=== PATIENT | female | born 1965 | race Caucasian/White ===

== ENCOUNTER 2019-11-26 08:24 | Day surgery (SDC) | payer OTHER, MEDICARE ==
[~2019-11-26] VITALS: Ht 172.7 cm; Wt 149.7 kg
[~2019-11-26 08:24] MED LIST: ALBU8.5H8 IH; CHOL500062 PO; ESCI10TA54 PO; ESTR0.5T PO; FLUT1DIS3 IH; LEVO5TAB13 PO; PANT40TA25 PO; SODIUM CHLORIDE 0.9% 1000ML 1,000 ML IV ONE
[2019-11-26 09:26] VITALS: BP 136/79
[2019-11-26] MEDS ORDERED: GUAI-1211 PO (09:56)
[2019-11-26] MEDS ORDERED: [UNRECOGNIZED DRUG - OTHER] PO (09:56)
[2019-11-26] MEDS ORDERED: MIDAZOLAM HCL 1 MG/ML 2ML VIAL ONE (10:21)
[2019-11-26] MEDS ORDERED: PROPOFOL 10 MG/ML 20ML VIAL IV ONE (10:21)
[2019-11-26] MEDS ORDERED: LIDOCAINE HCL 1% 20 ML VIAL ONE (10:21)
[2019-11-26 10:38] VITALS: BP 124/64
[2019-11-26 10:43] VITALS: BP 123/53
[2019-11-26 10:48] VITALS: BP 134/84
--- NOTE | 2019-11-26 11:10 | NUR ---
PT LEFT VIA WHEELCHAIR IN PVT CAR. D/C INSTRUCTIONS GIVEN TO FAMILY FRIEND WITH FU APPT. V/S STABLE N-O COMPLICATIONS UPON D.C
== END 2019-11-26 11:10 | disposition home or self-care (01) ==
LOC: DAH 08:24 → ENDO 08:24
PROVIDERS: ATTEND Internal Medicine
DX: Z12.11 Encounter for screening for malignant neoplasm of colon (principal); K63.5 Polyp of colon; J45.31 Mild persistent asthma with (acute) exacerbation; F41.9 Anxiety disorder, unspecified; K21.9 Gastro-esophageal reflux disease without esophagitis; F32.9 Major depressive disorder, single episode, unspecified; F17.210 Nicotine dependence, cigarettes, uncomplicated; E66.01 Morbid (severe) obesity due to excess calories; Z68.42 Body mass index [BMI] 45.0-49.9, adult; Z79.899 Other long term (current) drug therapy; Z79.2 Long term (current) use of antibiotics; Z90.710 Acquired absence of both cervix and uterus; Z90.49 Acquired absence of other specified parts of digestive tract; Z72.89 Other problems related to lifestyle; Z80.0 Family history of malignant neoplasm of digestive organs; Z82.49 Family history of ischemic heart disease and other diseases of the circulatory system; Z82.5 Family history of asthma and other chronic lower respiratory diseases
CPT/HCPCS: 45378; A4215; A4221; A4222; A4223; A4606; A4620; A4663; J2250; J2704; J7030

== ENCOUNTER 2019-11-27 05:41 | Day surgery (SDC) | payer OTHER, MEDICARE ==
[2019-11-27] VITALS (8 sets, daily range): BP systolic 107–142; BP diastolic 66–83
[~2019-11-27] VITALS: Ht 172.7 cm; Wt 149.7 kg
[~2019-11-27 05:41] MED LIST changes: +GUAI-1211 PO; -SODIUM CHLORIDE 0.9% 1000ML 1,000 ML IV ONE; +[UNRECOGNIZED DRUG - OTHER] PO
[2019-11-27] MEDS ORDERED: SODIUM CHLORIDE 0.9% 1000ML 1,000 ML IV ONE (06:22)
[2019-11-27] MEDS ORDERED: PROPOFOL 10 MG/ML 20ML VIAL IV ONE (07:17)
== END 2019-11-27 08:10 | disposition home or self-care (01) ==
LOC: DAH 05:41 → ENDO 05:41
PROVIDERS: ATTEND Internal Medicine Gastroenterology
DX: Z12.11 Encounter for screening for malignant neoplasm of colon (principal); K63.5 Polyp of colon; J45.31 Mild persistent asthma with (acute) exacerbation; F41.9 Anxiety disorder, unspecified; F32.9 Major depressive disorder, single episode, unspecified; F17.210 Nicotine dependence, cigarettes, uncomplicated; E66.01 Morbid (severe) obesity due to excess calories; K21.9 Gastro-esophageal reflux disease without esophagitis; Z68.43 Body mass index [BMI] 50.0-59.9, adult; Z90.710 Acquired absence of both cervix and uterus; Z98.890 Other specified postprocedural states; Z90.49 Acquired absence of other specified parts of digestive tract; Z72.89 Other problems related to lifestyle; Z82.49 Family history of ischemic heart disease and other diseases of the circulatory system; Z82.5 Family history of asthma and other chronic lower respiratory diseases; Z80.0 Family history of malignant neoplasm of digestive organs
CPT/HCPCS: 45378; A4215; A4221; A4222; A4223; A4606; A4615; A4663; J2704; J7030

== ENCOUNTER 2019-11-29 06:03 | Day surgery (SDC) | payer OTHER, MEDICARE ==
[~2019-11-29] VITALS: Ht 172.7 cm; Wt 151.0 kg
[2019-11-29] MEDS ORDERED: SODIUM CHLORIDE 0.9% 1000ML 1,000 ML IV ONE (06:16)
[2019-11-29 06:44] VITALS: BP 138/85
[2019-11-29] MEDS ORDERED: PROPOFOL 10 MG/ML 20ML VIAL IV ONE ×3 (07:09→08:34)
[2019-11-29 08:54] VITALS: BP 112/66
[2019-11-29 08:59] VITALS: BP 130/74
[2019-11-29 09:04] VITALS: BP 145/96
[2019-11-29 09:09] VITALS: BP 130/70
== END 2019-11-29 09:10 | disposition home or self-care (01) ==
LOC: DAH 06:03
PROVIDERS: ATTEND Internal Medicine
DX: Z12.11 Encounter for screening for malignant neoplasm of colon (principal); K63.5 Polyp of colon; K62.1 Rectal polyp; Q43.8 Other specified congenital malformations of intestine; Z80.0 Family history of malignant neoplasm of digestive organs; J45.31 Mild persistent asthma with (acute) exacerbation; J44.9 Chronic obstructive pulmonary disease, unspecified; F41.9 Anxiety disorder, unspecified; F32.9 Major depressive disorder, single episode, unspecified; Z90.49 Acquired absence of other specified parts of digestive tract; Z90.710 Acquired absence of both cervix and uterus; Z86.19 Personal history of other infectious and parasitic diseases
CPT/HCPCS: 45380; 45381; 45385; A4215; A4221; A4222; A4223; A4606; A4663; J2704 ×3; J7030

== ENCOUNTER → 2025-07-17 | Outpatient (CLI) | payer MEDICARE ==
[~2025-07-17] MED LIST changes: +CODE118L3 PO; +ESCI-8 PO; -ESCI10TA54 PO; -ESTR0.5T PO; +ESTR0.5T2 PO; -GUAI-1211 PO; -PANT40TA25 PO; +PANT40TA54 PO
[2025-07-17 11:39] LABS: ASPARTATE AMINOTRANSFERASE 19.0 U/L (10-37); CREATININE 0.7 mg/dL (0.5-1.0); GLOMERULAR FILTR. RATE CALC 98.0 mL/min (>90); GLUCOSE,RANDOM 102.0 mg/dL (70-105); SODIUM SERUM 142.0 mmol/L (136-145); TOTAL PROTEIN, SERUM 6.9 g/dL (6.0-8.3); UREA NITROGEN, BLOOD 16.0 mg/dL (7-18)
== END | disposition home or self-care (01) ==
LOC: LAB 10:44
PROVIDERS: ATTEND Internal Medicine Gastroenterology
DX: R10.33 Periumbilical pain (principal)
CPT/HCPCS: 36415; 80053

== ENCOUNTER → 2025-07-18 | Outpatient (CLI) | payer MEDICARE ==
[~2025-07-18] MED LIST changes: +IOHEXOL 350 MG/ML 100ML INFUS..BTL IV ONE
--- NOTE | 2025-07-18 14:30 | HMCIMG ---
EXAM: CT Abdomen and Pelvis with and without IV contrast CLINICAL HISTORY: PERIUMBILICAL PAIN TECHNIQUE: Axial computed tomography images of the abdomen and pelvis with and without intravenous contrast. CONTRAST: with and without intravenous contrast. COMPARISON: None provided. FINDINGS: LUNG BASES:Atelectasis in the lateral basal segment of the right lower lobe with few fibrotic bands in the lingular segment of the left upper lobe. LIVER: Unremarkable. GALLBLADDER AND BILE DUCTS: The gallbladder is surgically removed. PANCREAS: Unremarkable. SPLEEN: Approximately 3.2 x 2.5 x 5.6 cm well-defined non-enhancing hypodense lesion with multiple calcification foci abutting the superolateral surface of the splenic parenchyma. ADRENAL GLANDS: Unremarkable. KIDNEYS, URETERS, AND BLADDER: Unremarkable. STOMACH AND BOWEL: Unremarkable. APPENDIX: No acute appendicitis. PERITONEUM: Approximately 4 mm gap defect at the umbilicus region through which herniation of the omental fat, suggestive of umbilical hernia, is likely. LYMPH NODES: No lymphadenopathy. REPRODUCTIVE: Unremarkable as visualized. VASCULATURE: Moderate atherosclerotic changes in the visualized arterial vasculature in the form of a fibrocalcified plaque. BONES: Osseous degenerative changes.IMPRESSION: 1. No acute intraabdominal or pelvic pathology. 2. Umbilical hernia with approximately 4 mm gap defect and herniation of omental fat. 3. 3.2 x 2.5 x 5.6 cm well-defined non-enhancing hypodense lesion with calcifications in the spleen, suggestive of a calcified cyst. /Jefry
== END | disposition home or self-care (01) ==
LOC: RAH 07:44
PROVIDERS: ATTEND Internal Medicine Gastroenterology
DX: R10.33 Periumbilical pain (principal); I70.8 Atherosclerosis of other arteries; J98.11 Atelectasis; H83.8X9 Other specified diseases of inner ear, unspecified ear; Z90.49 Acquired absence of other specified parts of digestive tract
CPT/HCPCS: 74178; Q9967